=== PATIENT | female | born 1965 | race Caucasian/White ===

== ENCOUNTER 2021-11-02 08:32 | Emergency (ER) | payer OTHER ==
[2021-11-02] MEDS ORDERED: Lidocaine 4% Top Soln 50 ML Bottle TOP ONE (09:29)
== END 2021-11-02 09:50 | disposition home or self-care (01) ==
LOC: JP.ED 08:32
DX: H92.01 Otalgia, right ear (principal); Z88.2 Allergy status to sulfonamides
CPT/HCPCS: 99281; 99282; A9270-GY